=== PATIENT | female | born 1975 | race Caucasian/White ===

== ENCOUNTER 2020-12-20 15:52 | Emergency (ER) | payer BC ==
[~2020-12-20] VITALS: Ht 167 cm; Wt 68.0 kg
[~2020-12-20 15:52] MED LIST: ACHD5005 PO; SILV25CR TP
[2020-12-20 16:00] VITALS: BP 163/98
[2020-12-20] MEDS ORDERED: TETANUS,DIPTH,PERTUSS P/F (BOOSTRIX) 0.5 ML VIAL IM ONE (16:15)
[2020-12-20] MEDS ORDERED: HYDROcodone/APAP 7.5 MG/325 MG (LORTAB, LORCET PLUS) TABLET PO ONE (16:30)
[2020-12-20] MEDS ORDERED: ACHD5005 PO (16:32)
[2020-12-20] MEDS ORDERED: AMOX-358 PO (16:32)
[2020-12-20] MEDS ORDERED: MUPI22OI2 TP (16:32)
--- NOTE | 2020-12-20 16:33 | ED Upper Extremity ---
General Chief Complaint: Bite-Animal/Human/Insect Stated Complaint: DOG BITES/L ARM INJ Nursing Triage Note: ARRIVED VIA AMB TO FAST TRACK. STATES SHE WAS BREAKING UP HER DOGS FIGHTING AND WAS BIT ON THE LEFT LOWER ARM. Nursing Sepsis Screen: No Definite Risk History of Present Illness Date Seen by Provider: Dec 20, 2020 Time Seen by Provider: 16:00 Initial Comments 45-year-old female has multiple animal bites to her left forearm right index finger and left upper thigh. She reports her 2 large dogs were fighting and she tried to separate them. She is not current on tetanus but the animals both have rabies vaccines. They are not normally aggressive. She denies any other injuries related to the dog bite. Onset: this afternoon Pain/Injury Location: left forearm; right 2nd finger; left other (Upper thigh, anterior) Method of Injury: other (Dog bite) Allergies and Home Medications Allergies Coded Allergies: No Known Drug Allergies (Unverified , 02/17/11) Home Medications Amoxicillin/Potassium Clav 1 Each Tablet, 1 EACH PO BID Prescribed by: ROSAURA MONTOYA on 12/20/20 1632 Hydrocodone Bit/Acetaminophen 1 Each Tablet, 1-2 EACH PO Q6H PRN Prescribed by: RAGHU EPPS on 02/17/112116 Hydrocodone/Acetaminophen 1 Each Tablet, 1 TAB PO Q8H PRN for PAIN-MODERATE (5- 7) Prescribed by: ROSAURA MONTOYA on 12/20/20 1633 Mupirocin 22 Gm Oint...g., 1 EA TP TID Prescribed by: ROSAURA MONTOYA on 12/20/20 1632 Silver Sulfadiazine 25 Gm Cream.gm., 25 GM TP DAILY Prescribed by: RAGHU EPPS on 02/17/112117 Patient Home Medication List Home Medication List Reviewed: Yes Review of Systems Constitutional: no symptoms reported, see HPI Skin: see HPI, other (Multiple superficial lacerations to left forearm, right index finger and left upper thigh.) Past Pbezsct-Csfoqj-Utntjv Hx Past Med/Social Hx: Reviewed Nursing Past Med/Soc Hx Patient Social History Alcohol Use: Rarely Uses Smoking Status: Former Smoker Recent Infectious Disease Expo: No Recent Hopitalizations: No Immunizations Up To Date Tetanus Booster (TDap): More than 5yrs Seasonal Allergies Seasonal Allergies: No Past Medical History Surgeries: No Respiratory: No Cardiac: No Neurological: No Genitourinary: No Gastrointestinal: No Musculoskeletal: No Endocrine: No HEENT: No Cancer: No Psychosocial: No Integumentary: No Physical Exam Vital Signs Vital Signs - First Documented 12/20/20 16:00 Temp 37.0 Pulse 88 Resp 16 B/P (MAP) 163/98 (119) Pulse Ox 98 O2 Delivery Room Air Capillary Refill : Less Than 3 Seconds Height, Weight, BMI Height: '" Weight: lbs. oz. kg; 24.00 BMI Method:Stated General Appearance: WD/WN, no apparent distress Cardiovascular: normal peripheral pulses, regular rate, rhythm Respiratory: chest non-tender, lungs clear, normal breath sounds Elbow/Forearm: Left, abrasions, bone tenderness, pain, soft tissue tenderness, swelling Wrist: Yes normal inspection, Yes non-tender, Yes no evidence of injury, Yes normal ROM Hand: normal ROM, Right, abrasions Neurologic/Tendon: normal sensation, normal motor functions, normal tendon functions Neurologic/Psychiatric: no motor/sensory deficits, alert, normal mood/affect, oriented x 3 Progress/Results/Core Measures Results/Orders My Orders Orders - ROSAURA MONTOYA Dipht,Pertuss(Acell),Tet Adult (Boostrix (12/20/20 16:15) Forearm, Left, 2 Views (12/20/20 16:23) Hydrocodone/Apap 7.5/325 Tab (Lortab 7. (12/20/20 16:30) Medications Given in ED Current Medications Medications Dose Ordered Sig/Saida Route Start Time Stop Time Status Last Admin Dose Admin Acetaminophen/ Hydrocodone Bitart 1 ea ONCE ONCE PO 12/20/20 16:30 12/20/20 16:31 DC 12/20/20 16:33 1 EA Diphtheria/ Tetanus/Acell Pertussis 0.5 ml ONCE ONCE IM 12/20/20 16:15 12/20/20 16:16 DC 12/20/20 16:16 0.5 ML Vital Signs/I&O 12/20/20 16:00 Temp 37.0 Pulse 88 Resp 16 B/P (MAP) 163/98 (119) Pulse Ox 98 O2 Delivery Room Air Blood Pressure Mean: 119 Progress Progress Note : Time: 16:00 Progress Note Patient seen and evaluated, wounds copiously irrigated with Hibiclens and sterile water. Triple antibiotic ointment and sterile dressings applied. Will obtain x-ray of the left forearm. Tetanus booster given. Hydrocodone/APAP 7.5/325 for pain. Left arm wrapped with Edouard wrapped and elevated with ice pack. 1640 discharge instructions and return precautions reviewed with the patient. A ll questions answered. Diagnostic Imaging Diagonstic Imaging: Xray Plain Films/CT/US/NM/MRI: forearm Comments NAME: ATUL DOYLE [facility] REC#: [id number] PT STATUS: REG ER : 1975 PHYSICIAN: ROSAURA MONTOYA ADMIT DATE: 12/20/20/ER Draft Date of Exam:12/20/20 FOREARM, LEFT, 2 VIEWS INDICATION: Dog bite. COMPARISON: None. FINDINGS: Two radiographic views of the left forearm were obtained. There is scattered soft tissue emphysema. No unexpected radiopaque foreign bodies are seen. The underlying osseous structures are intact. There is no evidence of acute fracture or dislocation. IMPRESSION: Soft tissue emphysema of the left forearm but no evidence of acute fracture or dislocation. Dictated on workstation # [id number] Dict: 12/20/20 1640 Trans: 12/20/20 1644 [id number] Interpreted by: DINESH RODRIGUEZ MD Electronically signed by: Reviewed: Reviewed by Me Departure Impression Primary Impression: Dog bite Qualified Codes: W54.0XXA - Bitten by dog, initial encounter Disposition: 01 HOME, SELF-CARE Condition: Improved Departure-Patient Inst. Decision time for Depature: 16:45 Referrals: [facility]/ RAJINDER,LOCAL PHYSICIAN (PCP) Primary Care Physician Patient Instructions: Animal Bites (DC), Wound Care (DC) Add. Discharge Instructions: Clean with soap and water then irrigate with peroxide 3 times daily. Apply antibiotic ointment as prescribed. Take antibiotics as prescribed. Follow-up at [facility] in 3 to 4 days for wound check, sooner if symptoms of infection.(Redness, warmth, discolored or foul-smelling drainage, fever greater than 101 degrees.) Use pain medication as prescribed you may also take ibuprofen 600 mg every 8 hours. Do not take additional Tylenol while taking the prescription medicine. Return to the emergency department for fever greater than 101 degrees, wound infections, or new, urgent healthcare needs. All discharge instructions reviewed with patient and/or family. Voiced understanding. Scripts Hydrocodone/Acetaminophen (Hydrocodone-Acetamin 5-325 mg) 1 Each Tablet 1 TAB PO Q8H PRN for PAIN-MODERATE (5-7), #20 TAB 0 Refills Prov: ROSAURA MONTOYA 12/20/20 Mupirocin (Mupirocin) 22 Gm Oint...g. 1 EA TP TID for 7 Days, #1 TUBE 1 Refill Prov: ROSAURA MONTOYA 12/20/20 Amoxicillin/Potassium Clav (Augmentin 875-125 Tablet) 1 Each Tablet 1 EACH PO BID, #20 TAB 0 Refills Prov: ROSAURA MONTOYA 12/20/20 Work/School Note: Work Release Form Date Seen in the Emergency Department: Dec 20, 2020 Return to Work: Dec 22, 2020 Other Restrictions Listed Below: light duty left arm ROSAURA MONTOYA Dec 20, 2020 16:33
--- NOTE | 2020-12-20 16:44 | Diagnostic Imaging Report ---
INDICATION: Dog bite. COMPARISON: None. FINDINGS: Two radiographic views of the left forearm were obtained. There is scattered soft tissue emphysema. No unexpected radiopaque foreign bodies are seen. The underlying osseous structures are intact. There is no evidence of acute fracture or dislocation. IMPRESSION: Soft tissue emphysema of the left forearm but no evidence of acute fracture or dislocation. Dictated by: Dictated on workstation # [id number]
== END 2020-12-20 16:49 | disposition home or self-care (01) ==
LOC: EDUNIT# 15:52 → ER 15:54
DX: S60.410A Abrasion of right index finger, initial encounter (principal); S50.812A Abrasion of left forearm, initial encounter; Z23 Encounter for immunization; Z87.891 Personal history of nicotine dependence; W54.0XXA Bitten by dog, initial encounter
CPT/HCPCS: 73090; 90715

== ENCOUNTER 2021-03-02 16:04 | Emergency (ER) | payer BC ==
[~2021-03-02] VITALS: Ht 167 cm; Wt 65.0 kg
[~2021-03-02 16:04] MED LIST changes: +AMOX-358 PO; +MUPI22OI2 TP
[2021-03-02] MEDS ORDERED: cefTRIAXone 1,000 MG/2.86 ml vial (IM ONLY) IM SCH (16:30)
[2021-03-02] MEDS ORDERED: HYDROcodone/APAP 5 MG/325 MG (LORTAB) TAB PO ONE (16:30)
[2021-03-02] MEDS ORDERED: LIDOCAINE 1% INJ 20 ML 20 ML VIAL INJ ONE (16:30)
[2021-03-02] MEDS ORDERED: BUPIVACAINE 0.5% 30 ML (SENSORCAINE) VIAL INJ ONE (16:30)
--- NOTE | 2021-03-02 16:36 | ED Integumentary General ---
General Chief Complaint: Bite-Animal/Human/Insect Stated Complaint: 2ND FINGER, DOG BITE/LACERATION Source: patient Exam Limitations: no limitations History of Present Illness Date Seen by Provider: March 02, 2021 Time Seen by Provider: 16:33 Initial Comments ER with a amputation of the tip of the left pointer finger from her dog.. She was trying to separate her 2 dogs from a fight and they bit the tip of her finger off. The dogs are both up-to-date on rabies, she is up-to-date on her tetanus vaccine. Timing/Duration: just prior to arrival Severity: moderate Location: extremities Associated Symptoms: denies symptoms Allergies and Home Medications Allergies Coded Allergies: No Known Drug Allergies (Unverified , 02/17/11) Home Medications Amoxicillin/Potassium Clav 1 Each Tablet, 1 EACH PO BID Prescribed by: ROSAURA MONTOYA on 12/20/20 163 Amoxicillin/Potassium Clav 1 Each Tablet, 1 EACH PO BID Prescribed by: DOMINIK RAMESH on 03/02/21 1721 Hydrocodone Bit/Acetaminophen 1 Each Tablet, 1-2 EACH PO Q6H PRN Prescribed by: RAGHU EPPS on 02/17/112116 Hydrocodone/Acetaminophen 1 Each Tablet, 1 TAB PO Q8H PRN for PAIN-MODERATE (5- 7) Prescribed by: ROSAURA MONTOYA on 12/20/20 1633 Hydrocodone/Acetaminophen 1 Each Tablet, 1 TAB PO Q4H PRN for PAIN-MODERATE (5- 7) Prescribed by: DOMINIK RAMESH on 03/02/21 1721 Mupirocin 22 Gm Oint...g., 1 EA TP TID Prescribed by: ROSAURA MONTOYA on 12/20/20 1632 Silver Sulfadiazine 25 Gm Cream.gm., 25 GM TP DAILY Prescribed by: RAGHU EPPS on 02/17/112117 Patient Home Medication List Home Medication List Reviewed: Yes Review of Systems Review of Systems Constitutional: see HPI EENTM: see HPI Respiratory: no symptoms reported Cardiovascular: no symptoms reported Genitourinary: no symptoms reported Musculoskeletal: no symptoms reported Skin: no symptoms reported Psychiatric/Neurological: No Symptoms Reported Endocrine: No Symptoms Reported Hematologic/Lymphatic: No Symptoms Reported Past Hvgiead-Tequed-Msuqxf Hx Patient Social History Alcohol Use: Occasionally Uses Smoking Status: Never a Smoker Recent Hopitalizations: No Immunizations Up To Date Tetanus Booster (TDap): More than 5yrs Seasonal Allergies Seasonal Allergies: No Past Medical History Surgeries: No Respiratory: No Cardiac: No Neurological: No Genitourinary: No Gastrointestinal: No Musculoskeletal: No Endocrine: No HEENT: No Cancer: No Psychosocial: No Integumentary: No Physical Exam Vital Signs Vital Signs - First Documented 03/02/21 16:14 Temp 36.1 Pulse 85 Resp 20 B/P (MAP) 139/110 (120) Pulse Ox 95 O2 Delivery Room Air Capillary Refill : General Appearance: WD/WN, no apparent distress HEENT: PERRL/EOMI, normal ENT inspection Neck: non-tender, full range of motion Respiratory: no respiratory distress, no accessory muscle use Neurologic/Psychiatric: alert, normal mood/affect, oriented x 3 Skin: normal color, warm/dry Skin Problem Location: upper extremities Skin Problem Character: other (There is a complete amputation of the distal aspect of the left pointer finger with exposed phalanx. This is a clean cut without irregular borders.) Progress/Results/Core Measures Results/Orders My Orders Orders - DOMINIK RAMESH APRN Hydrocodone/Apap 5/325 Tablet (Lortab 5 (03/02/21 16:30) Ceftriaxone For Im Use (Rocephin For Im (03/02/21 16:30) Lidocaine 1% Inj 20 Ml (Xylocaine 1% Inj (03/02/21 16:30) Bupivacaine 0.5% Injection (Sensorcaine (03/02/21 16:30) Hand, Left, 3 Views (03/02/21 16:26) Medications Given in ED Current Medications Medications Dose Ordered Sig/Saida Route Start Time Stop Time Status Last Admin Dose Admin Acetaminophen/ Hydrocodone Bitart 1 ea ONCE ONCE PO 03/02/21 16:30 03/02/21 16:31 DC 03/02/21 16:30 1 EA Bupivacaine HCl 30 ml ONCE ONCE INJ 03/02/21 16:30 03/02/21 16:31 DC 03/02/21 16:32 5 ML Lidocaine HCl 2.1 ml ONCE ONCE INJ 03/02/21 16:30 03/02/21 16:31 DC 03/02/21 16:51 2.1 ML Vital Signs/I&O 03/02/21 03/02/21 16:14 17:30 Temp 36.1 Pulse 85 70 Resp 20 20 B/P (MAP) 139/110 (120) 121/89 Pulse Ox 95 97 O2 Delivery Room Air Room Air Diagnostic Imaging Diagonstic Imaging: Xray Comments NAME: ATUL DOYLE [facility] REC#: [id number] PT STATUS: REG ER : 1975 PHYSICIAN: DOMINIK RAMESH PROJECT ADMINISTRATOR ADMIT DATE: 03/02/21/ER Signed Date of Exam:03/02/21 HAND, LEFT, 3 VIEWS INDICATION: Dog bite injury. AP, oblique and lateral views of the left hand are obtained. No acute fracture or malalignment is identified. However there does appear to be amputation of the tip of the index finger. No radiopaque foreign body is identified. IMPRESSION: Soft tissue amputation at the index fingertip without evidence of underlying fracture. Dictated by: Dictated on workstation # [id number] Dict: 03/02/21 1654 Trans: 03/02/211703 [facility] [id number] Interpreted by: VIRGEN AGUILAR MD Electronically signed by: VIRGEN AGUILAR MD 03/02/21 1704 Departure Communication (Admissions) I did a digital block using 5 mL of 0.5% bupivacaine without epinephrine. X- rays were then obtained showing no injury to the bone. There was exposed phalanx outside of the soft tissues. For the sake of coverage of the exposed bone this had to be rongeured. Rongeurs were used to trim the distal aspect of the phalanx such that it could be covered with remaining soft tissue. After bone was removed, 4 simple interrupted sutures size 4-0 Monocryl were placed. There is a small amount of intact proximal nail in place. Bleeding was controlled. This was irrigated thoroughly with Betadine/saline solution prior to rongeuring and after prior to closing with sutures. Covered with Xeroform then tube gauze. 1822-spoke to Dr. Medina and he will follow up with the patient Impression Primary Impression: Fingertip amputation Disposition: 01 HOME, SELF-CARE Condition: Stable Departure-Patient Inst. Decision time for Depature: 17:16 Referrals: NO,LOCAL PHYSICIAN (PCP) Primary Care Physician SAMAN MEDINA MD Patient Instructions: Amputation of the Finger or Fingertip Add. Discharge Instructions: 1. Keep the dressing in place. Return to ER on Saturday for wound check and dressing change. Try to keep this dry as well. Take pain medication and antibiotics as directed. Call Dr. MEDINA from orthopedics tomorrow to make an appointment to be seen within the next 1 to 2 weeks for follow-up. We will probably end up seeing you in the emergency room a couple of times for wound check. All discharge instructions reviewed with patient and/or family. Voiced understanding. Scripts Hydrocodone/Acetaminophen (Hydrocodone-Acetamin 5-325 mg) 1 Each Tablet 1 TAB PO Q4H PRN for PAIN-MODERATE (5-7), #30 TAB Prov: DOMINIK RAMESH APRN 03/02/21 Amoxicillin/Potassium Clav (Augmentin 875-125 Tablet) 1 Each Tablet 1 EACH PO BID, #14 TAB 0 Refills Prov: DOMINIK RAMESH APRN 03/02/21 Copy Copies To 1: SAMAN MEDINA MD, PETER J APRN March 02, 2021 16:36
--- NOTE | 2021-03-02 17:02 | Diagnostic Imaging Report ---
INDICATION: Dog bite injury. AP, oblique and lateral views of the left hand are obtained. No acute fracture or malalignment is identified. However there does appear to be amputation of the tip of the index finger. No radiopaque foreign body is identified. IMPRESSION: Soft tissue amputation at the index fingertip without evidence of underlying fracture. Dictated by: Dictated on workstation # [id number]
[2021-03-02] MEDS ORDERED: AMOX-358 PO (17:21)
[2021-03-02] MEDS ORDERED: ACHD5005 PO (17:21)
[2021-03-02 17:30] VITALS: BP 121/89
== END 2021-03-02 17:30 | disposition home or self-care (01) ==
LOC: EDUNIT# 16:04 → ER 16:05
DX: S68.111A Complete traumatic metacarpophalangeal amputation of left index finger, initial encounter (principal); W54.0XXA Bitten by dog, initial encounter
CPT/HCPCS: 12001; 73130

== ENCOUNTER 2021-03-04 11:24 | Emergency (ER) | payer BC ==
[~2021-03-04] VITALS: Ht 167.7 cm; Wt 65.7 kg
[2021-03-04 11:30] VITALS: BP 136/81
--- NOTE | 2021-03-04 12:10 | ED Suture Removal/Wound Check ---
Suture/Wound Re-check Suture Removal/Wound Recheck : Suture Removal/Wound Recheck: Dry/sterile dressing-appl General Appearance: WD/WN, no apparent distress Neuro/Tendon: normal sensation, normal motor functions Skin Exam: normal color, warm/dry Comments This is a 45 yo female who presented for wound check of her left distal index finger. Was bitten off by her dog on . States she has been keeping dressing clean and dry and keeping elevated as much as possible. Occasionally will accidentally bump her finger and will re-bleed briefly. States she applies additional dressing when this occurs. Has no concerns at this time. Physical Exam Vital Signs Vital Signs - First Documented 03/04/21 11:30 Temp 36.9 Pulse 79 Resp 20 B/P (MAP) 136/81 Pulse Ox 99 O2 Delivery Room Air Capillary Refill : General Appearance: WD/WN, no apparent distress Neurologic/Psychiatric: alert, normal mood/affect, oriented x 3 Skin: normal color, warm/dry Skin Problem Character: other (distal portion of left index finger approximated with asorbable sutures. Skin is pink/warm. Red/pink granulation tissue present. No eschar, sloughing, or drainage noted. ) Departure Impression Primary Impression: Visit for wound check Disposition: HOME, SELF-CARE Condition: Stable Departure-Patient Inst. Decision time for Depature: 12:09 Referrals: NO,LOCAL PHYSICIAN (PCP/Family) Primary Care Physician Patient Instructions: Wound Care (DC) Add. Discharge Instructions: Continue to keep your hand elevated above your heart as much as possible. Change dressing daily as shown in ED, change if excessively soiled. Return on Saturday for wound check. Return for any concerning or worsening symptoms. All discharge instructions reviewed with patient and/or family. Voiced understanding. LUZ ELENA FLYNN TILE CLASSIFIER March 04, 2021 12:10
== END 2021-03-04 12:15 | disposition home or self-care (01) ==
LOC: EDUNIT# 11:24 → ER 11:26
DX: Z48.00 Encounter for change or removal of nonsurgical wound dressing (principal)

== ENCOUNTER 2021-03-07 13:48 | Emergency (ER) | payer BC ==
[~2021-03-07] VITALS: Ht 167 cm; Wt 65.0 kg
[2021-03-07 13:50] VITALS: BP 140/80
--- NOTE | 2021-03-07 14:14 | ED Suture Removal/Wound Check ---
Suture/Wound Re-check General Appearance: WD/WN, no apparent distress Neuro/Tendon: normal sensation Skin Exam: normal color, warm/dry Physical Exam Vital Signs Vital Signs - First Documented 03/07/21 13:50 Temp 37.0 Pulse 79 Resp 16 B/P (MAP) 140/80 Pulse Ox 98 O2 Delivery Room Air Capillary Refill : General Appearance: WD/WN, no apparent distress HEENT: PERRL/EOMI Respiratory: no respiratory distress, no accessory muscle use Extremities: normal range of motion, other (There is some granulation tissue with very tip of the pointer finger or what remains of it. There is minimal surrounding erythema. She is scheduled to see Dr. CANCINO tomorrow.) Neurologic/Psychiatric: alert, normal mood/affect, oriented x 3 Skin: normal color, warm/dry Departure Impression Primary Impression: Fingertip amputation Disposition: 01 HOME, SELF-CARE Condition: Stable Departure-Patient Inst. Decision time for Depature: 14:13 Referrals: NO,LOCAL PHYSICIAN (PCP/Family) Primary Care Physician Patient Instructions: Wound Care (DC) Add. Discharge Instructions: keep Your appointment with Dr. CANCINO tomorrow. Return to ER for any concerns All discharge instructions reviewed with patient and/or family. Voiced understanding. DOMINIK RAMESH BUILDING RIGGER March 07, 2021 14:14
== END 2021-03-07 14:20 | disposition home or self-care (01) ==
LOC: EDUNIT# 13:48 → ER 13:49
DX: Z48.00 Encounter for change or removal of nonsurgical wound dressing (principal)
CPT/HCPCS: 99281